=== PATIENT | male | born 1960 | race Caucasian/White ===

== ENCOUNTER 2018-06-06 07:54 | Day surgery (SDC) | payer OTHER ==
[~2018-06-06] VITALS: Ht 172.7 cm; Wt 86.9 kg
[2018-06-06 09:00] VITALS: Ht 172.7 cm; Wt 86.9 kg
[2018-06-06] MEDS ORDERED: cholesterol med PO (09:06)
[2018-06-06] MEDS ORDERED: vitamin b12 PO (09:06)
[2018-06-06 09:14] VITALS: BP 116/71; PULSE 68; RESP 20
[2018-06-06] MEDS ORDERED: FENTAnyl 50 MCG/ML VIAL ONE (10:33)
[2018-06-06] MEDS ORDERED: MIDAZOLAM 1 MG/ML 2 ML INJ ONE ×2 (10:33)
[2018-06-06 10:56] VITALS: BP 113/72; PULSE 69; RESP 18
== END 2018-06-06 16:45 | disposition home or self-care (01) ==
LOC: GIL 07:54
PROVIDERS: ATTEND Internal Medicine Gastroenterology
DX: Z12.11 Encounter for screening for malignant neoplasm of colon (principal); K64.8 Other hemorrhoids
CPT/HCPCS: 45378; J2250; J3010; Z7610; 88305

== ENCOUNTER 2018-10-29 09:55 | Day surgery (SDC) | payer OTHER ==
[2018-10-29] VITALS (12 sets, daily range): BP systolic 95–122; BP diastolic 49–76; PULSE 66–90; RESP 11–20; Ht 162.6 cm; Wt 89.1 kg
[~2018-10-29] VITALS: Ht 162.6 cm; Wt 89.1 kg
[~2018-10-29 09:55] MED LIST: cholesterol med PO; vitamin b12 PO
[2018-10-29] MEDS ORDERED: SOD CHLORIDE 0.9% 1,000 ML IV SCH (10:30)
[2018-10-29] MEDS ORDERED: CEFAZOLIN 2 GM/50 ML (PMX) 50 ML IVPB SCH (10:30)
[2018-10-29] MEDS ORDERED: ATOR20TA65 ORAL (11:03)
[2018-10-29] MEDS ORDERED: CHOL200073 ORAL (11:03)
[2018-10-29] MEDS ORDERED: BUPIVACAINE 0.25%/EPI (SDV) 30 ML INJ ONE (12:01)
[2018-10-29] MEDS ORDERED: POLYMYXIN/BACITRACIN 1L IRRIG ONE (12:19)
[2018-10-29] MEDS ORDERED: ONDANSETRON 4 MG INJ ONE (12:50)
[2018-10-29] MEDS ORDERED: CEFAZOLIN 1 GM INJ ONE (12:50)
[2018-10-29] MEDS ORDERED: SUCCINYLCHOLINE CHLORIDE 100 MG/5 ML SYG IV ONE ×2 (12:50→12:52)
[2018-10-29] MEDS ORDERED: DEXAMETHASONE 4 MG/ML 5 ML INJ ONE (12:50)
[2018-10-29] MEDS ORDERED: MIDAZOLAM 1 MG/ML 2 ML INJ ONE (12:50)
[2018-10-29] MEDS ORDERED: ROCURONIUM 50 MG INJ ONE ×2 (12:50→15:02)
[2018-10-29] MEDS ORDERED: LIDOCAINE 100 MG SYRINGE ONE (12:51)
--- NOTE | 2018-10-29 12:55 | HPN ---
Date/Time of Note Date/Time of Note DATE: 10/29/18 TIME: 12:55 Interval H&P Admission Note Pt. seen H&P reviewed: No system changes CHERELLE GARRIDO MD Oct 29, 2018 12:55
--- NOTE | 2018-10-29 12:57 | PREAC ---
Date/Time of Note Date/Time of Note DATE: 10/29/18 TIME: 12:55 Anesthesia Eval and Record Evaluation Time Pre-Procedure Interview DATE: 10/29/18 TIME: 12:55 Age 58 Sex male NPO: 8 hrs Preoperative diagnosis Left ventral hernia Planned procedure Lap repair ventral hernia w mesh Past Medical History Past Medical History: Includes Endo: Other (Hyperlipdemia, pre diabetes) Surgery & Anesthesia Issues No known issue Meds Anticoagulation: No Beta Nika within 24 hr: No Reason Beta Nika not given: Pt. not on B-Nika Reported Medications Atorvastatin Calcium (Atorvastatin Calcium) 20 Mg Tablet, 1 TAB ORAL DAILY 10/29/18 Cholecalciferol (Vitamin D3) (VITAMIN D-3) 2,000 Unit Capsule, 1 TAB ORAL DAILY 10/29/18 Discontinued Reported Medications [cholesterol med] No Conflict Check, PO DAILY 06/06/18 [vitamin b12] No Conflict Check, PO DAILY 06/06/18 Current Medications Cefazolin Sodium/ Dextrose 50 ml @ 100 mls/hr ONCE IVPB ; Start 10/29/18 at 1 0:30; Stop 10/29/18 at 16:30 Sodium Chloride 1,000 ml @ 75 mls/hr [id number] IV Last administered on 10/29/18at 11:22; Admin Dose 75 MLS/HR; Start 10/29/18 at 10:30 Meds reviewed: Yes Allergies Coded Allergies: No Known Allergy (Unverified , 10/29/18) Allergies Reviewed: Yes Labs/Studies Labs Reviewed: Reviewed by anesthesiologist test: N/A Pre-procedure Exam Last vitals Vital Signs Date Temp Pulse Resp B/P (MAP) Pulse Ox O2 O2 Flow FiO2 Time Delivery Rate 10/29/18 98.7 66 18 108/65 97 Room Air 11:48 (79) Airway: Adequate mouth opening Mallampati: Mallampati I Teeth: Normal Lung: Normal Heart: Normal ASA Physical Status ASA physical status: 2 Emergency: None Planned Anesthetic General/MAC: ETT Nerve block: TAP Pre-operative Attestations Prior to commencing anesthesia and surgery, the patient was re-evaluated, there was verification of: *The patient's identity *The results of appropriate recent lab work and preoperative vital signs *The above evaluation not changing prior to induction *Anesthetic plan, risk benefits, alternative and complications discussed with patient/family; questions answered; patient/family understands, accepts and wishes to proceed. KAE FRITZ MD Oct 29, 2018 12:57
[2018-10-29] MEDS ORDERED: EPHEDrine 25 MG/5 ML SYG ONE (13:48)
[2018-10-29] MEDS ORDERED: KETOROLAC 30 MG INJ IV PRN ×2 (14:00→15:30)
[2018-10-29] MEDS ORDERED: HYDROmorphONE 1 MG/5 ML IV SYRINGE IV PRN ×2 (14:00)
[2018-10-29] MEDS ORDERED: ONDANSETRON 4 MG INJ IV PRN ×2 (14:00→15:30)
[2018-10-29] MEDS ORDERED: SUGAMMADEX SODIUM 200 MG/2 ML VIAL IV ONE (15:02)
[2018-10-29] MEDS ORDERED: HYDROCODONE/APAP (5/325) TAB PO PRN ×2 (15:30)
[2018-10-29] MEDS ORDERED: IBUPROFEN 600 MG TAB PO PRN (15:30)
[2018-10-29] MEDS ORDERED: morphine 2 MG INJ IV PRN (15:30)
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
[2018-10-29] MEDS: HYDROmorphONE 1 MG/5 ML IV SYRINGE IV PRN ×2 (15:53→16:10)
--- NOTE | 2018-10-29 16:41 | PAC ---
Date/Time of Note Date/Time of Note DATE: 10/29/18 TIME: 16:41 Post-Anesthesia Notes Post-Anesthesia Note Last documented vital signs Vital Signs Date Temp Pulse Resp B/P (MAP) Pulse Ox O2 O2 Flow FiO2 Time Delivery Rate 10/29/18 86 11 97/49 (65) 94 Room Air 16:14 10/29/18 98.0 15:32 10/29/18 10.0 15:29 Activity: WNL Respiratory function: WNL Cardiovascular function: WNL Mental status: Baseline Pain reasonably controlled: Yes Hydration appropriate: Yes Nausea/Vomiting absent: Yes KAE FRITZ MD Oct 29, 2018 16:41
== END 2018-10-29 17:50 | disposition home or self-care (01) ==
LOC: SDS 09:55
PROVIDERS: ATTEND Surgery
DX: K43.9 Ventral hernia without obstruction or gangrene (principal); E78.5 Hyperlipidemia, unspecified; R73.03 Prediabetes
CPT/HCPCS: 49652; 88302; J0690; J1100; J1170; J2001; J2250; J2405; J3010; Z7512; Z7610